=== PATIENT | female | born 1965 | race Caucasian/White ===

== ENCOUNTER → 2016-08-06 | Outpatient (CLI) | payer OTHER ==
[~2016-08-06] MED LIST: BIRTH CONTROL PILL PO; COUMADIN PO; LOVENOX SUBQ; WELLBUTRIN PO
--- NOTE | ~2016-08-06 | MY29 ---
[facility] A Service of [facility] RADIOLOGY TEXT RESULTS PATIENT: DESIRAE SOUTH LOCATION: [facility] : 65 UNIT #: [id number] AGE: [address]: KARLA BANERJEE APRN SEX: F ORDER DR: [id number] [facility]. [place], [place] [address] [id number] O MR#: [id number] Acc #: [id number] NAME: DESIRAE SOUTH : 1965 SEX: F STUDY DATE/TIME: 08/06/2016 16:45 UNIT: [facility] ROOM: STUDY DESCRIPTION: MY MART SCREENING W/ CAD BILAT Attending Physician: Zenobia Keith Ordering Physician: Staff Doctor Not On Primary Care Physician: Zenobia Keith MEDICAL IMAGING REPORT This report is preliminary unless electronic signature is present EXAMINATION Bilateral digital screening mammogram with CAD. DATE 08/06/2016 HISTORY Family history of breast cancer in mother at age of 61. No personal history of breast cancer or current complaints. COMPARISON Bilateral screening mammogram, 07/28/2015. FINDINGS CC and MLO views were obtained of each breast utilizing digital technique and reviewed with an FDA-approved CAD device. Scattered fibroglandular densities are present bilaterally. No new or suspicious nodule, architectural distortion or clustered microcalcification is seen. IMPRESSION 1. BIRADS 1. Negative screening mammogram. Routine screening mammogram recommended in one year. Patients over the age of 40 are entered into a reminder system with target due date for the next mammogram. A result letter will also be sent to the patient. BIRADS: 1 Negative. [facility] A Service of [facility] RADIOLOGY TEXT RESULTS PATIENT: DESIRAE SOUTH LOCATION: [facility] : 65 UNIT #: [id number] AGE: [address]: KARLA ABNERJEE APRN SEX: F ORDER DR: Dictated by... Cherie Rodríguez M.D. THIS IS AN ELECTRONICALLY VERIFIED REPORT Cherie Rodríguez M.D. at 08/07/2016 9:01 AM PARKER/karla TD: 08/06/2016 19:43 JOB #: [id number] MEDICAL IMAGING REPORT Page 1 of 1 COPY
== END | disposition home or self-care (01) ==
LOC: CWCC 16:30
DX: Z12.31 Encounter for screening mammogram for malignant neoplasm of breast (principal); Z80.3 Family history of malignant neoplasm of breast
CPT/HCPCS: G0202